=== PATIENT | male | born 1960 | race Caucasian/White ===

== ENCOUNTER 2020-05-30 14:42 | Outpatient (CLI) | payer OTHER, SELFPAY ==
--- NOTE | ~2020-05-30 | MR_ITS ---
EXAMINATION: MR lumbar spine wo con DATE: 05/30/2020 15:29 INDICATION: Low back pain. TECHNIQUE: Magnetic resonance imaging (MRI) of the lumbar spine was performed without intravenous con trast. Sequences included sagittal T2-weighted FSE, sagittal T2-weighted FS FSE, sagittal T1-weighted FSE, and axial T2-weighted FSE. COMPARISON: Lumbar spine MRI 03/11/2013 FINDINGS: There is 9 degrees dextrocurvature of thoracolumbar spine. There are Schmorl's nodes at all levels. There is mild chronic anterior wedging of T12 vertebral body. There is moderately decreased disc height at L2-L3 and L5-S1 and mildly decreased disc height at L4-L5. The distal spinal cord sign al intensity is normal. The conus medullaris is at L1. The following disc levels are specifically dis cussed: L1-L2: The disc does not extend beyond the endplate margin. There is mild bilateral facet joint osteo arthritis. There is no neural foraminal stenosis. There is no central canal stenosis. L2-L3: The disc does not extend beyond the endplate margin. There is mild right and moderate left fac et joint osteoarthritis. There is no neural foraminal stenosis. There is no central canal stenosis. L3-L4: The disc does not extend beyond the endplate margin. There is moderate bilateral facet joint o steoarthritis. There is no neural foraminal stenosis. There is no central canal stenosis. L4-L5: The disc is bulging. There is severe bilateral facet joint osteoarthritis. There is mild bilat eral neural foraminal stenosis. There is mild central canal stenosis. L5-S1: The disc is bulging and has an annular fissure. There is moderate bilateral facet joint osteoa rthritis. There is moderate right and mild left neural foraminal stenosis. There is mild central danyel l stenosis. IMPRESSION: 1. Moderate lumbar spondylosis with improvement at L5-S1 and worsening at other levels. Reviewed, dictated and finalized at location A. [facility]
== END 2020-05-30 14:43 | disposition home or self-care (01) ==
PROVIDERS: PCP Emergency Medicine; Visit Provider Orthopaedic Surgery
DX: M47.896 Other spondylosis, lumbar region (principal)
CPT/HCPCS: 72148

== ENCOUNTER 2020-08-04 12:17 | Outpatient (CLI) | payer OTHER, SELFPAY ==
[2020-08-04 12:29] LABS: Hematocrit 40.8 % (42.0-52.0); Hemoglobin 13.2 g/dL (14.0-18.0); Mean Corpuscular HGB Conc 32.4 g/dl (32-36); Mean Corpuscular Hemoglobin 34.7 pg (26-34); Mean Corpuscular Volume 107.4 fl (80-100); Mean Platelet Volume 8.3 fl (7.4-10.4); Platelet Count Result 255 k/mm3 (150-375); Red Cell Distribution Width 15.1 % (11.5-14.5); White Blood Count 6.7 K/mm3 (4.5-10.0)
[2020-08-04 12:44] LABS: Alanine Aminotransferase 29 U/L (4-50); Alkaline Phosphatase 105 U/L (38-126); Anion Gap 4 mmol/L (8-16); Aspartate Amino Transferase 33 U/L (17-59); Bilirubin,Total 0.6 mg/dL (0.2-1.3); Blood Urea Nitrogen 6 mg/dL (9-20); CRP 0.7 mg/dL (<1.0); Calcium 8.7 mg/dL (8.4-10.2); Carbon Dioxide 30 mmol/L (22-30); Chloride 103 mmol/L (98-107); Estimated Glomerular Filt Rate > 60; Glucose 107 mg/dL (75-110); Lipase 151 U/L (23-300); Sodium 137 mmol/L (137-145)
[2020-08-04 13:26] LABS: Erythrocyte Sedimentation Rate 18 mm/hr (0-20)
[2020-08-04 14:10] LABS: Hepatitis B Surface Antigen Negative (Negative)
[2020-08-04 14:16] LABS: HAV RESULT Negative (Negative); Hepatitis B Core IgM Result Negative (Negative)
[2020-08-04 14:27] LABS: Hepatitis C Virus Antibody Negative (Negative)
[2020-08-09 19:31] LABS: Rotavirus Stool Not Detected
[2020-08-10 12:58] LABS: Rotavirus Stool Not Detected
== END 2020-08-04 12:18 | disposition home or self-care (01) ==
PROVIDERS: PCP Emergency Medicine; Visit Provider Internal Medicine Gastroenterology
DX: R10.13 Epigastric pain (principal); R74.8 Abnormal levels of other serum enzymes
CPT/HCPCS: 36415; 80053; 80074; 83690; 85027; 85652; 86140; 87045; 87046; 87324; 87425; 87427; 87493

== ENCOUNTER → 2020-09-24 01:38 | Outpatient (CLI) | payer OTHER, SELFPAY ==
[2020-09-24 19:16] LABS: SARS-CoV-2 RNA PCR Negative
== END ==
PROVIDERS: PCP Emergency Medicine; Visit Provider Internal Medicine Gastroenterology
DX: Z01.812 Encounter for preprocedural laboratory examination (principal); Z20.822 Contact with and (suspected) exposure to COVID-19
CPT/HCPCS: C9803; U0003; U0005

== ENCOUNTER 2020-09-27 01:10 | Day surgery (SDC) | payer OTHER, SELFPAY ==
[2020-09-15 15:26] VITALS: BMI 29.2
--- NOTE | 2020-09-27 11:30 | WPDANESEPPF ---
Anes - Initial Pre Proc Eval Procedure: Operation Date: 09/27/20 12:30 Proposed Procedures p Esophagogastroduodenoscopy & Colonoscopy - Tobi Reardon MD Date/Time: 09/27/20 11:30 Surgeon: Tobi Reardon MD Pre Op Diagnosis: abd pain, nausea, diarrhea Patient Data Age: 60 Gender: M Height: 1.83 m Weight: 97.7 kg Allergies Allergy/AdvReac Type Severity Reaction Status Date / Time omeprazole [From Prilosec] Allergy Nausea and Verified 09/27/20 12:22 Vomiting Home Medications Medication Instructions Recorded Confirmed Type alprazolam 0.5 mg tablet 0.5 mg PO TID PRN #90 tablet 07/25/20 09/15/20 Rx sertraline [Zoloft] See Rx Instructions .ROUTE .COMPLEX 09/15/20 09/15/20 History Patient hx anesthesia problems: none Family hx anesthesia problems: none PMFSH Past Medical History Medical History (Updated 08/03/20 @ 15:41 by Tobi Readron MD) Abdominal pain Alcohol use Alcoholism Anxiety Blindness Colon, diverticulosis Congestion of nasal sinus Coughing Depression Diarrhea Diarrhea Dizziness Elevated lipase Elevated liver enzymes GERD (gastroesophageal reflux disease) Hair loss Left groin pain Left hip pain Low back pain Memory loss Nausea Obstructive sleep apnea PTSD (post-traumatic stress disorder) Shortness of breath Sleep disorder Tobacco abuse Vertigo Vision changes Wheezing Surgical History Surgical History History of hernia surgery 2018 History of kidney transplant 1992 Family History Family History Mother Diabetes mellitus Father Family history of alcoholism Other Family history of cardiovascular disease Family history of kidney disease Family history of malignant neoplasm Hypertension Social History Social History (Updated 08/03/20 @ 14:57 by Charisse John MA) Smoking packs per day: 1 Smoking cigarettes per day: 20.0 Years smoked: 40 Smoking pack-years: 40.00 Smoking status: Current every day smoker Tobacco type: cigarettes Alcohol intake: current Alcohol use details: 1 tallboy per night Substance use: current Substance use type: marijuana Living arrangements: with family Gender identity (if verbalized by the patient): Male Anes - Eval Final PreProcedure Day of Procedure 09/27/20 11:30 Patient weight: overweight Heart: regular rate and rhythm Lungs: clear to auscultation and normal air movement Airway: Mallampati scale class II Neurological: alert and oriented Last oral intake: >/= 8 hours ASA classification: III Emergent: no Anesthetic plan: proceed Anesthesia type and monitoring: general GIVS and standard monitoring Informed Consent: The patient's anesthetic plan and its attendant risks and benefits were discussed with the patient/family/POA. Questions were solicited and answers provided to the satisfaction of the patient/family/POA.
[2020-09-27 12:24] VITALS: BP 149/85; PULSE 88; RESP 20; TEMP 35.9; O2SAT 99
[2020-09-27] MEDS: LACTATED RINGERS 1,000 ML 150 ML IV CONT (12:32)
--- NOTE | 2020-09-27 12:33 | PM.HPGS ---
History of Present Illness History of Present Illness Consent: Risks, benefits, and alternatives have been discussed and questions answered. Patient agrees to proceed with procedure. Chief complaint: abd pain, nausea, diarrhea Narrative: Aleksandr Duncan is a 60 year old male here for egd and colonoscopy, history of left groin pain but also h/o lumbar pain and sciatica CT scan 05/2020 with diverticulosis, treated empirically with antibiotics but no evidence of colitis. He also had nausea but has improved. Review of Systems Constitutional: Constitutional: Denies headache(s) and Denies weakness Eyes: Eyes: Denies blurry vision ENT: Reports Normal hearing present, Denies headache(s) and Denies neck pain Cardiovascular: Cardiovascular: Denies chest pain and Denies dyspnea Respiratory: Respiratory: Denies dyspnea Gastrointestinal: Gastrointestinal: Reports no additional gastrointestinal complaints Genitourinary: Genitourinary: Denies dysuria Musculoskeletal: Musculoskeletal: Denies neck pain Integumentary/Breasts: Skin/Breast: Denies dry skin Neurologic: Reports Normal hearing present, Denies headache(s) and Denies weakness Psychiatric: Psychiatric: Denies anxiety Endocrine: Endocrine: Denies change in body appearance Hematologic/Lymphatic: Hematologic/Lymphatic: Denies easy bleeding Allergic/Immunologic: Allergic/Immunologic: Denies urticaria PMFSH Past Medical History Medical History (Updated 08/03/20 @ 15:41 by Tobi Reardon MD) Abdominal pain Alcohol use Alcoholism Anxiety Blindness Colon, diverticulosis Congestion of nasal sinus Coughing Depression Diarrhea Diarrhea Dizziness Elevated lipase Elevated liver enzymes GERD (gastroesophageal reflux disease) Hair loss Left groin pain Left hip pain Low back pain Memory loss Nausea Obstructive sleep apnea PTSD (post-traumatic stress disorder) Shortness of breath Sleep disorder Tobacco abuse Vertigo Vision changes Wheezing Surgical History Surgical History History of hernia surgery 2018 History of kidney transplant 1992 Family History Family History Mother Diabetes mellitus Father Family history of alcoholism Other Family history of cardiovascular disease Family history of kidney disease Family history of malignant neoplasm Hypertension Social History Social History (Updated 08/03/20 @ 14:57 by Charisse John MA) Smoking packs per day: 1 Smoking cigarettes per day: 20.0 Years smoked: 40 Smoking pack-years: 40.00 Smoking status: Current every day smoker Tobacco type: cigarettes Alcohol intake: current Alcohol use details: 1 tallboy per night Substance use: current Substance use type: marijuana Living arrangements: with family Gender identity (if verbalized by the patient): Male Meds Home Medications and Allergies Home Medications Medication Instructions Recorded Confirmed Type alprazolam 0.5 mg tablet 0.5 mg PO TID PRN #90 tablet 07/25/20 09/27/20 Rx sertraline [Zoloft] See Rx Instructions .ROUTE .COMPLEX 09/15/20 09/27/20 History Allergies Allergy/AdvReac Type Severity Reaction Status Date / Time omeprazole [From Prilosec] Allergy Nausea and Verified 09/27/20 12:22 Vomiting Vital Signs Vital Signs - 24 hr 09/27/20 12:24 Temperature 96.7 F L Pulse Rate 88 Respiratory Rate 20 Blood Pressure 149/85 H Pulse Oximetry 99 Exam Const: General: comfortable and no acute distress HENMT: General nose exam: Normal nares present Eyes: General: appearance normal, both eyes and all related structures Neck: Neck: no JVD Resp: Auscultation: clear to auscultation bilaterally Cardio: Rate: regular rate Rhythm: regular rhythm GI: Inspection: non-distended GI Palp: Yes Soft to palpation Skin: General skin exam: normal color Neuro
[2020-09-27] MEDS: BENZOCAINE (*SP) 60 ML SPRAY CAN (HURRICAINE) 1 SPRAY MUCOUS MEM (12:39)
[2020-09-27 13:04] VITALS: BP 128/78; PULSE 90; RESP 16; O2SAT 96
[2020-09-27 13:14] VITALS: BP 119/76; PULSE 90; RESP 18; O2SAT 100
[2020-09-27 13:24] VITALS: BP 143/92; PULSE 88; RESP 16; O2SAT 99
== END 2020-09-27 13:39 | disposition home or self-care (01) ==
PROVIDERS: PCP Emergency Medicine; Visit Provider Internal Medicine Gastroenterology
PROC: 0DJ08ZZ Inspection of Upper Intestinal Tract, Via Natural or Artificial Opening Endoscopic (ICD-10-PCS; CPT 43235; principal; 2020-09-27 12:30)
DX: R10.32 Left lower quadrant pain (principal); K52.9 Noninfective gastroenteritis and colitis, unspecified; K64.8 Other hemorrhoids; K57.30 Diverticulosis of large intestine without perforation or abscess without bleeding; R11.0 Nausea; K44.9 Diaphragmatic hernia without obstruction or gangrene; K22.70 Barrett's esophagus without dysplasia; K21.00 Gastro-esophageal reflux disease with esophagitis, without bleeding; K63.5 Polyp of colon; K29.50 Unspecified chronic gastritis without bleeding; F41.9 Anxiety disorder, unspecified; M54.40 Lumbago with sciatica, unspecified side; R10.2 Pelvic and perineal pain; F41.8 Other specified anxiety disorders; R79.89 Other specified abnormal findings of blood chemistry; G47.33 Obstructive sleep apnea (adult) (pediatric); F43.10 Post-traumatic stress disorder, unspecified; F17.210 Nicotine dependence, cigarettes, uncomplicated; F12.90 Cannabis use, unspecified, uncomplicated
CPT/HCPCS: 45380; 43239; 88305; 88342; J2704; J7120